=== PATIENT | male | born 1985 | race Caucasian/White ===

== ENCOUNTER 2022-11-12 12:09 | Emergency (ER) | payer MEDICAID ==
[~2022-11-12] VITALS: Ht 170.2 cm; Wt 68.0 kg
[2022-11-12 13:01] VITALS: BP 135/87
[2022-11-12] MEDS ORDERED: FAMOTIDINE 20MG/2ML VIAL IV STA (14:35)
[2022-11-12] MEDS ORDERED: METOCLOPRAMIDE HCL 10MG/2ML VIAL IV STA (14:35)
[2022-11-12] MEDS ORDERED: DIPHENHYDRAMINE 50MG/ML VIAL IV ONE (14:45)
[2022-11-12] MEDS ORDERED: SODIUM CHLORIDE 0.9% 1,000 ML IV ONE (14:45)
[2022-11-12 15:13] LABS: CLARITY URINE TURBID (CLEAR); COLOR URINE YELLOW (YELLOW); KETONES URINE TRACE (NEGATIVE); LEUKOCYTE ESTERASE URINE 3+ (NEGATIVE); NITRITE URINE NEGATIVE (NEGATIVE); OCCULT BLOOD URINE TRACE (NEGATIVE); PROTEIN URINE 1+ (NEGATIVE); SPECIFIC GRAVITY URINE 1.025 (1.005-1.030)
[2022-11-12 15:26] LABS: *AMPHETAMINES SCREEN URINE NEGATIVE (NEGATIVE); *BARBITURATES SCREEN URINE NEGATIVE (NEGATIVE); *BENZODIAZEPINES SCREEN URINE NEGATIVE (NEGATIVE); *COCAINE SCREEN URINE NEGATIVE (NEGATIVE); CANNABINOID URINE SCREEN NEGATIVE (NEGATIVE); METHADONE URINE SCREEN NEGATIVE (NEGATIVE); OPIATES URINE SCREEN NEGATIVE (NEGATIVE); PHENCYCLIDINE URINE SCREEN NEGATIVE (NEGATIVE)
[2022-11-12] MEDS ORDERED: CEFTRIAXONE SODIUM 1 G/VIAL IM ONE (16:00)
[2022-11-12] MEDS ORDERED: CEPH500T MT (17:27)
== END 2022-11-12 17:53 | disposition home or self-care (01) ==
LOC: ER 12:09
DX: N39.0 Urinary tract infection, site not specified (principal); R50.9 Fever, unspecified; R19.7 Diarrhea, unspecified
CPT/HCPCS: 80305; 81003; 87077; 87086; 87186; 96372; 99283; J0696; J1200; J2765; J3490; J7030